=== PATIENT | female | born 1960 | race Caucasian/White ===

== ENCOUNTER → 2017-06-04 | Outpatient (CLI) | payer OTHER | LOC: BRMIMAGING 14:24 | PROVIDERS: ATTEND Obstetrics & Gynecology Gynecology | DX: Z12.31 Encounter for screening mammogram for malignant neoplasm of breast (principal) ==

== ENCOUNTER 2018-08-20 05:46 | Day surgery (SDC) | payer OTHER ==
[2018-08-20] MEDS ORDERED: LR 1,000 ML IV ONE (06:12)
[2018-08-20] MEDS ORDERED: MIDAZOLAM 2 MG/2 ML VIAL IVP ONE (06:58)
[2018-08-20] MEDS ORDERED: SCOPOLAMINE HYDROBROMIDE 1 MG/3 DAYS PATCH TD ONE (06:59)
--- NOTE | 2018-08-20 06:59 | PDANEPAE ---
ANE History of Present Illness hysteroscopy/polypectomy ANE Past Medical History - Cardiovascular History Hx Hypertension: No Hx Arrhythmias: No Hx Chest Pain: No Hx Coronary Artery / Peripheral Vascular Disease: No Hx CHF / Valvular Disease: No Hx Palpitations: No Cardiovascular History Comment: MYCARDIAL BRIDGE/ TREATED WITH RX - Pulmonary History Hx COPD: No Hx Asthma/Reactive Airway Disease: No Hx Recent Upper Respiratory Infection: No Hx Oxygen in Use at Home: No Hx Sleep Apnea: No Sleep Apnea Screening Result - Last Documented: Negative - Neurologic History Hx Cerebrovascular Accident: No Hx Seizures: No Hx Dementia: No - Endocrine History Hx Diabetes: No Obesity: no - Renal History Hx Renal Disorders: No - Liver History Hx Hepatic Disorders: No - Neurological & Psychiatric Hx Hx Neurological and Psychiatric Disorders: No - Cancer History Hx Cancer: No - Congenital Disorder History Hx Congenital Disorders: No - GI History Hx Gastrointestinal Disorders: Yes Gastrointestinal History Comment: REFLUX - Other Health History Other Health History: SJOGRENS-CAUSES JOINT PAIN. BRUISES EASILY - Chronic Pain History Chronic Pain: Yes (JOINT PAIN) - Surgical History Prior Surgeries: OVARIAN CYSTECTOMY ANE Review of Systems Review of Systems: - Exercise capacity METS (RN): 6 METS ANE Patient History - Allergies Allergies/Adverse Reactions: gluten Allergy (Verified 08/09/18 17:57) GI morphine Allergy (Verified 08/09/18 17:57) NAUSEA - Home Medications Home medications: home medication list seen and reviewed Home Medications: Celebrex BID 08/09/18 [Last Taken 08/19/18] DEXAMETHASONE DAILY 08/09/18 [Last Taken 08/20/18] Herbals/Supplements -Info Only DAILY 08/09/18 [Last Taken 08/19/18] Metoprolol Succinate Xr BID 08/09/18 [Last Taken 08/19/18] Omeprazole DAILY 08/09/18 [Last Taken 08/20/18] Plaquenil 200 mg (*) DAILY 08/09/18 [Last Taken 08/19/18] Progesterone HS 08/09/18 [Last Taken 08/19/18] Restasis Opht Drops(*) BID 08/09/18 [Last Taken 08/19/18] ZOLPIDEM TARTRATE HS 08/09/18 [Last Taken 08/19/18] - NPO status NPO Since - Liquids (Date): 08/19/18 NPO Since - Liquids (Time): 22:30 NPO Since - Solids (Date): 08/19/18 NPO Since - Solids (Time): 19:00 - Smoking Hx Smoking Status: Never smoked ANE Labs/Vital Signs - Vital Signs Blood Pressure: 110/74 Heart Rate: 72 Respiratory Rate: 14 O2 Sat (%): 98 Height: 167.64 cm Weight: 61.235 kg ANE Physical Exam - Airway Neck exam: FROM Mallampati Score: Class 1 Mouth exam: normal dental/mouth exam - Pulmonary Pulmonary: no respiratory distress - Cardiovascular Cardiovascular: regular rate and rhythym - ASA Status ASA Status: II ANE Anesthesia Plan Anesthesia Plan: GA w LMA
[2018-08-20] MEDS ORDERED: SCOPOLAMINE HYDROBROMIDE 1 MG/3 DAYS PATCH TD SCH (07:00)
[2018-08-20] MEDS ORDERED: fentaNYL 100 MCG/2 ML INJ ONE (07:03)
[2018-08-20] MEDS ORDERED: PROPOFOL 200 MG/20 ML VIAL ONE (07:03)
[2018-08-20] MEDS ORDERED: LIDOCAINE 2% 5 ML SDV ONE (07:05)
--- NOTE | 2018-08-20 07:20 | PDHPUP ---
History & Physical Update H&P update statement: This history and physical update is based on an assessment of the patient which was completed after admission or registration (within 24 hours), but prior to the surgery/procedure. H&P update: H&P reviewed & patient examined, no change in patient's condition since H&P completed
[2018-08-20] MEDS ORDERED: DEXAMETHASONE 4 MG/ML VIAL ONE (07:32)
[2018-08-20] MEDS ORDERED: ONDANSETRON 4 MG/2 ML VIAL ONE (07:32)
[2018-08-20] MEDS ORDERED: KETOROLAC 30 MG/1 ML SDV ONE (07:32)
[2018-08-20] MEDS ORDERED: ONDANSETRON 4 MG/2 ML VIAL IVP PRN (07:37)
[2018-08-20] MEDS ORDERED: METOCLOPRAMIDE 10 MG/2 ML VIAL IVP PRN (07:37)
[2018-08-20] MEDS ORDERED: ALBUTEROL 3 ML DEYVIAL IH PRN (07:37)
[2018-08-20] MEDS ORDERED: HYDROmorphONE/DILAUDID 1 MG/ML INJ IVP PRN (07:37)
[2018-08-20] MEDS ORDERED: LR 500 ML IV PRN (07:37)
[2018-08-20] MEDS ORDERED: PROMETHAZINE HCL 25 MG/ML INJ IVP PRN (07:37)
[2018-08-20] MEDS ORDERED: NALOXONE HCL 0.4 MG/ML INJ IVP PRN (07:37)
[2018-08-20] MEDS ORDERED: HYDROCODONE/APAP 5/325 TAB PO PRN (07:37)
[2018-08-20] MEDS ORDERED: fentaNYL 100 MCG/2 ML INJ IVP PRN (07:37)
[2018-08-20] MEDS ORDERED: oxyCODONE IR 5 MG TAB PO PRN (07:37)
[2018-08-20] MEDS ORDERED: ACETAMINOPHEN 500 MG TAB PO PRN (07:37)
--- NOTE | 2018-08-20 07:38 | POSTANESTH ---
Post Anesthetic Evaluation Cardiovascular Status: Normal, Stable Respiratory Status: Normal, Stable Level of Consciousness/Mental Status: Can Participate in Eval, Alert and Oriented Pain Control: Adequate, Prn Tx Ordered Nausea/Vomiting Control: Adequate, Prn Tx Ordered Complications Possibly Related to Anesthesia: None Noted
--- NOTE | 2018-08-20 08:24 | POSTOPPROG ---
Post Op Note Date of Operation: 08/20/18 Surgeon: Chanel Mckeon Anesthesiologist: Miguel Corbett Anesthesia: LMA Pre-op Diagnosis: PMB , endometrial polyps Post-op Diagnosis: endometrial fibroid Indication: PMB Procedure: H/S myomectomy Findings: fundal fibroid Inf/Abcess present in the surg proc area at time of surgery?: No EBL: Minimal Complications: none
--- NOTE | 2018-08-20 09:09 | GOP ---
[f rep st] OPERATIVE REPORT DATE OF OPERATION: SURGEON: Chanel Mckeon MD ANESTHESIA: General with LMA. ANESTHESIOLOGIST: Miguel Corbett MD PREOPERATIVE DIAGNOSIS: 1. Postmenopausal bleeding. 2. Endometrial polyp. POSTOPERATIVE DIAGNOSIS: 1. Postmenopausal bleeding. 2. Endometrial polyp. 3. Possible fibroid. PROCEDURE PERFORMED: Hysteroscopic myomectomy versus polypectomy. FINDINGS: A fundal/posterior wall likely about 1 cm endometrial polyp versus fibroid. ESTIMATED BLOOD LOSS: Minimal. INDICATIONS: Patient is a 58-year-old who was recently started on hormone replacement therapy for sy mptomatic menopause. She had progressive bleeding and underwent ultrasound evaluation and this showe d a 6 to 7 mm endometrial growth that appeared to most likely be a polyp. The patient desires defini tive treatment. DESCRIPTION OF PROCEDURE: With informed consent signed, patient was taken to the operating room and placed under general anesthesia without complication, placed in a low dorsal lithotomy position, prep ped and draped in the usual sterile fashion. Bladder previously emptied. Tenaculum placed on the an terior lip of the cervix. Cervix gently dilated up to 6.5 mm. Hysteroscope placed using saline as a filling medium and findings noted above. The TruClear morcellator blade was placed into the hystero scope and resection of the fundal polyp/fibroid done without complication. Once it was felt that all the tissue was removed, inspection of the entire endometrium noted and no other tissue identified. Hemostasis was noted. The hysteroscope removed and patient placed in supine position, awakened in th e operating room and taken to the recovery room in stable condition, tolerated the procedure well. COMPLICATIONS: None. COMPLICATIONS: None. Copy requested to: Tania Ackerman [facility] /[id number]/MODL
[2018-08-20 10:24] VITALS: BP 112/66
[2018-08-23] MEDS ORDERED: PATCH REMOVAL 1 EA PATCH TD SCH (06:58)
== END 2018-08-20 10:24 | disposition home or self-care (01) ==
LOC: FSGY 05:46
PROVIDERS: ATTEND Obstetrics & Gynecology Gynecology
PROC: 0UB98ZZ Excision of Uterus, Via Natural or Artificial Opening Endoscopic (ICD-10-PCS; principal; 2018-08-20 07:15)
DX: N95.0 Postmenopausal bleeding (principal); N84.0 Polyp of corpus uteri; Z79.890 Hormone replacement therapy
CPT/HCPCS: 58558; C1782; J1100; J1885; J2250; J2405; J2704; J3010